=== PATIENT | male | born 1955 | race Caucasian/White ===

== ENCOUNTER 2022-04-18 13:31 | Inpatient (IN) | payer MEDICARE ==
[~2022-04-18] VITALS: Ht 167.6 cm; Wt 70.5 kg
[2022-04-18 14:02] LABS: LYMPHOCYTES # (AUTO) 0.8 X10'3 (1.1-4.8)
[2022-04-18 14:03] LABS: BASOPHILS % (AUTO) 0.2 % (0-1); EOSINOPHILS % (AUTO) 0.1 % (0-6); HEMATOCRIT 47.4 % (42.0-52.0); HEMOGLOBIN 15.9 g/dl (14.0-17.9); MEAN CORPUSCULAR HEMOGLOBIN 30.5 PG (27.0-31.0); MEAN CORPUSCULAR HGB CONC 33.7 g/dL (33.0-36.5); MEAN CORPUSCULAR VOLUME 90.5 FL (78-98); MONOCYTES # (AUTO) 1.6 X10'3 (0-0.9); MONOCYTES % (AUTO) 10.5 % (2-12); NEUTROPHILS # (AUTO) 13.1 X10'3 (1.8-7.7); NEUTROPHILS % (AUTO) 84.2 % (42-75); PLATELET COUNT 106 X10'3 (140-440); RED BLOOD COUNT 5.23 X10'6 (4.70-6.10); RED CELL DISTRIBUTION WIDTH 13.6 % (11.5-14.5); WHITE BLOOD COUNT 15.6 X10'3 (4.5-11.0)
[2022-04-18 14:43] LABS: ALANINE AMINOTRANSFERASE 21 U/L (12-78); ALBUMIN/GLOBULIN RATIO 0.6 (1.1-1.5); ALKALINE PHOSPHATASE 122 IU/L (46-116); ANION GAP 15 (8-16); ASPARTATE AMINO TRANSFERASE 23 U/L (10-37); BILIRUBIN,TOTAL 1.4 MG/DL (0.1-1.0); BLOOD UREA NITROGEN 72 MG/DL (7-18); BUN/CREATININE RATIO 29.9 (5.4-32.0); CALCIUM 9.1 MG/DL (8.5-10.1); CHLORIDE 94 MMOL/L (99-107); CREATININE 2.41 MG/DL (0.60-1.10); GLUCOSE 97 MG/DL (70-104); LIPASE 102 U/L (73-393); POTASSIUM 3.6 MMOL/L (3.5-5.1); SODIUM 131 MMOL/L (135-145); TOTAL CARBON DIOXIDE 21.8 MMOL/L (24-32); TOTAL PROTEIN 8.1 G/DL (6.4-8.2); eGFR 27 ML/MIN
[2022-04-18] MEDS ORDERED: normal saline 1000ml 1,000 ML IV ONE ×2 (19:00)
[2022-04-18] MEDS ORDERED: ondansetron/PF 4mg/2ml inj IV ONE ×2 (19:00→21:45)
[2022-04-18 19:37] LABS: CLARITY,URINE SLIGHTLY CLOUDY (Clear); COLOR,URINE YELLOW (Yellow); GLUCOSE, URINE NEGATIVE (Neg); KETONES,URINE TRACE mg/dl (Neg); LEUKOCYTE ESTERASE ,URINE SMALL (Neg); NITRITES, URINE NEGATIVE (Neg); OCCULT BLOOD,URINE MODERATE (Neg); PROTEIN,URINE TRACE mg/dl (Neg)
[2022-04-18 19:43] LABS: UA COLLECTION TYPE CLN CATCH MIDSTREAM
--- NOTE | 2022-04-18 19:44 | NUR ---
notified pt. that I need a sample to rule out c-diff. pt says he is currently unable to give sample at this moment.
[2022-04-18 19:53] LABS: BACTERIA,URINE FEW /HPF (Neg); RBC,URINE 0-2 /HPF (0-2); SQUAMOUS EPITHELIAL CELL,UR FEW /LPF (FEW); WBC,URINE 0-4 /HPF (0-4)
--- NOTE | 2022-04-18 20:31 | NUR ---
pts. indira will be Lionel
[2022-04-18] MEDS ORDERED: dextrose 5%-1/2 normal saline 1,000 ML IV ONE (21:15)
[2022-04-18] MEDS ORDERED: CefTRIAXone 2gm/NS 100ml IVPB 100 ML IV ONE (21:30)
[2022-04-18] MEDS ORDERED: vancomycin 125mg/5ml ORAL solution 5ml UD oral syringe PO SCH (21:35)
[2022-04-18] MEDS ORDERED: morphine 4 MG/ML inj SYRINge IV ONE (21:45)
[2022-04-18] MEDS ORDERED: mag hydrox/Alum hydrox/simeth 30ml oral suspension PO PRN (22:05)
[2022-04-18] MEDS ORDERED: loperamide 2mg capsule PO PRN (22:05)
[2022-04-18] MEDS ORDERED: magnesium 2GM in 50ml NS 50 ML IV PRN (22:05)
[2022-04-18] MEDS ORDERED: magnesium 4gm in 100ml NS 100 ML IV PRN (22:05)
[2022-04-18] MEDS ORDERED: magnesium hydroxide 30ml (MOM) UD suspension PO PRN (22:05)
[2022-04-18] MEDS ORDERED: POTASSIUM BICARB 20meq eff tab 20 MEQ TABLET.EFF PO PRN ×2 (22:05)
[2022-04-18] MEDS ORDERED: ondansetron/PF 4mg/2ml inj IV PRN (22:05)
[2022-04-18] MEDS ORDERED: acetaminophen 325mg tablet PO PRN ×2 (22:05)
[2022-04-18] MEDS ORDERED: magnesium Cl slow-release 64mg tablet PO PRN (22:05)
[2022-04-18] MEDS ORDERED: potassium CL 10mEq/100ml bag 100 ML IV PRN (22:05)
[2022-04-18] MEDS: dextrose 5%-1/2 normal saline 1,000 ML IV SCH (22:05)
[2022-04-18 22:55] LABS: MAGNESIUM 2.4 MG/DL (1.5-2.4)
[2022-04-18] MEDS ORDERED: diatrozoate meglu/diatrozoate sod (37% iodine) 120ML oral solution PO STA (23:16)
[2022-04-18 23:24] LABS: URINE AMPHETAMINE SCREEN NEGATIVE (Neg); URINE BARBITUATE SCREEN NEGATIVE (Neg); URINE BENZODIAZEPINES SCREEN NEGATIVE (Neg); URINE CANNABINOID SCREEN NEGATIVE (Neg); URINE COCAINE SCREEN NEGATIVE (Neg); URINE METHADONE SCREEN NEGATIVE (Neg); URINE OPIATE SCREEN NEGATIVE (Neg); URINE PHENCYCLIDINE SCREEN NEGATIVE (Neg)
[2022-04-18] MEDS ORDERED: diatr meglu/diatrizoate 30ml oral sol.-(3 dose) bottle PO STA (23:28)
--- NOTE | 2022-04-19 00:06 | NUR ---
MRI form done.
[2022-04-19] MEDS ORDERED: NO HOME MEDS (00:08)
[2022-04-19] MEDS: HYDROcodone/acetaminophen 5mg/325mg tablet PO PRN (00:45)
[2022-04-19 06:00] VITALS: BP 126/69
[2022-04-19 06:30] LABS: BASOPHILS % (AUTO) 0.2 % (0-1); EOSINOPHILS % (AUTO) 0.3 % (0-6); HEMATOCRIT 36.5 % (42.0-52.0); HEMOGLOBIN 12.3 g/dl (14.0-17.9); LYMPHOCYTES # (AUTO) 0.8 X10'3 (1.1-4.8); LYMPHOCYTES % (AUTO) 5.5 % (21-51); MEAN CORPUSCULAR HEMOGLOBIN 30.6 PG (27.0-31.0); MEAN CORPUSCULAR HGB CONC 33.7 g/dL (33.0-36.5); MEAN CORPUSCULAR VOLUME 90.9 FL (78-98); MEAN PLATELET VOLUME 9.6 FL (7.4-10.4); MONOCYTES % (AUTO) 13.7 % (2-12); NEUTROPHILS # (AUTO) 11.4 X10'3 (1.8-7.7); NEUTROPHILS % (AUTO) 80.3 % (42-75); PLATELET COUNT 92 X10'3 (140-440); RED BLOOD COUNT 4.02 X10'6 (4.70-6.10); RED CELL DISTRIBUTION WIDTH 13.9 % (11.5-14.5); WHITE BLOOD COUNT 14.3 X10'3 (4.5-11.0)
--- NOTE | 2022-04-19 06:30 | NUR ---
Patient in room [facility]TH[facility] 4007. I have received report from Rosaura DAMON and had the opportunity to ask questions and assume patient care.
[2022-04-19 06:42] LABS: ALANINE AMINOTRANSFERASE 15 U/L (12-78); ALBUMIN 2.1 G/DL (3.4-5.0); ALBUMIN/GLOBULIN RATIO 0.6 (1.1-1.5); ALKALINE PHOSPHATASE 91 IU/L (46-116); ANION GAP 9 (8-16); ASPARTATE AMINO TRANSFERASE 17 U/L (10-37); BILIRUBIN,TOTAL 0.7 MG/DL (0.1-1.0); BLOOD UREA NITROGEN 67 MG/DL (7-18); BUN/CREATININE RATIO 29.5 (5.4-32.0); CHLORIDE 103 MMOL/L (99-107); CREATININE 2.27 MG/DL (0.60-1.10); GLUCOSE 110 MG/DL (70-104); MAGNESIUM 2.3 MG/DL (1.5-2.4); POTASSIUM 3.5 MMOL/L (3.5-5.1); SODIUM 135 MMOL/L (135-145); TOTAL CARBON DIOXIDE 22.9 MMOL/L (24-32); TOTAL PROTEIN 5.9 G/DL (6.4-8.2); eGFR 29 ML/MIN
[2022-04-19] MEDS ORDERED: diatr meglu/diatrizoate 30ml oral sol.-(3 dose) bottle PO ONE ×2 (07:00→10:00)
[2022-04-19] MEDS: K and/or MAG REPLACEMENT MC SCH ×2 (08:00→19:15)
[2022-04-19] MEDS: docusate sod 100mg capsule PO SCH ×2 (08:00→19:15)
[2022-04-19] MEDS ORDERED: enoxaparin 40mg/0.4ml syringe SUBCUT SCH (08:00)
[2022-04-19] MEDS ORDERED: iohexol 300mg/ml 100ml inj. ONE (08:35)
--- NOTE | 2022-04-19 09:08 | NUR ---
Paged Dr. Smart about patient gram neg rods in blood culture Addendum: 04/19/22 at 1046 by Jo Ann Madison RN Dr. Smart notified of 2nd pos. blood cultures gram neg in left arm.
[2022-04-19 10:00] VITALS: BP 113/64
[2022-04-19] MEDS ORDERED: PERFLUTREN PROTEIN-A MICROSPHR (Optison) 0.22 MG/ML 3ML VIAL IV PRN (13:45)
[2022-04-19] MEDS: pantoprazole 40mg Tablet.DR PO SCH (13:49)
[2022-04-19] MEDS: dextrose 5%-1/2 normal saline 1,000 ML IV SCH ×2 (14:26→19:15)
[2022-04-19] MEDS ORDERED: cefTRIAXone 1g/NS 100ml IVPB 100 ML IV ONE (17:10)
[2022-04-19] MEDS ORDERED: SINCALIDE IV ONE (17:15)
[2022-04-19] MEDS ORDERED: NORMAL SALINE IV ONE (17:15)
[2022-04-19] MEDS ORDERED: piperacillin/tazobactam inj. 3.375 GM in NS 50ml IV ONE (17:35)
[2022-04-19 17:45] VITALS: BP_SYST 129; BP_SYST 136; BP_SYST 139; BP_DIAS 69; BP_DIAS 71; BP_DIAS 77
[2022-04-19 18:00] VITALS: BP 138/69
--- NOTE | 2022-04-19 18:23 | NUR ---
Problems reprioritized. Patient report given, questions answered & plan of care reviewed with Katheryn DAMON.
[2022-04-19 19:13] VITALS: BP 138/69
[2022-04-19 22:00] VITALS: BP 127/61
[2022-04-20] MEDS: dextrose 5%-1/2 normal saline 1,000 ML IV SCH ×2 (04:05→08:44)
[2022-04-20] MEDS: piperacillin/tazobactam inj. 3.375 GM in NS 50ml IV SCH ×2 (04:18→12:49)
[2022-04-20] MEDS: HYDROcodone/acetaminophen 5mg/325mg tablet PO PRN (04:42)
[2022-04-20 06:00] VITALS: BP 124/67
--- NOTE | 2022-04-20 06:05 | NUR ---
Report given to Lulú DAMON.
[2022-04-20 06:10] LABS: BASOPHILS # (AUTO) 0.1 X10'3 (0-0.2); BASOPHILS % (AUTO) 0.7 % (0-1); EOSINOPHILS % (AUTO) 0.2 % (0-6); HEMATOCRIT 33.7 % (42.0-52.0); HEMOGLOBIN 11.5 g/dl (14.0-17.9); LYMPHOCYTES # (AUTO) 0.9 X10'3 (1.1-4.8); LYMPHOCYTES % (AUTO) 5.9 % (21-51); MEAN CORPUSCULAR HEMOGLOBIN 30.1 PG (27.0-31.0); MEAN CORPUSCULAR VOLUME 88.8 FL (78-98); MEAN PLATELET VOLUME 9.5 FL (7.4-10.4); MONOCYTES # (AUTO) 1.6 X10'3 (0-0.9); NEUTROPHILS # (AUTO) 12.2 X10'3 (1.8-7.7); NEUTROPHILS % (AUTO) 82.2 % (42-75); PLATELET COUNT 131 X10'3 (140-440); RED CELL DISTRIBUTION WIDTH 13.9 % (11.5-14.5); WHITE BLOOD COUNT 14.9 X10'3 (4.5-11.0)
--- NOTE | 2022-04-20 06:24 | NUR ---
Patient in room ORTH[facility] 4007. I have received report from manolo soto and had the opportunity to ask questions and assume patient care.
[2022-04-20 06:29] LABS: ALANINE AMINOTRANSFERASE 21 U/L (12-78); ALBUMIN 2.1 G/DL (3.4-5.0); ALBUMIN/GLOBULIN RATIO 0.5 (1.1-1.5); ALKALINE PHOSPHATASE 105 IU/L (46-116); AMYLASE 61 U/L (25-115); ANION GAP 11 (8-16); ASPARTATE AMINO TRANSFERASE 26 U/L (10-37); BILIRUBIN,TOTAL 1.1 MG/DL (0.1-1.0); BLOOD UREA NITROGEN 40 MG/DL (7-18); BUN/CREATININE RATIO 22.3 (5.4-32.0); CALCIUM 8.6 MG/DL (8.5-10.1); CHLORIDE 106 MMOL/L (99-107); CREATININE 1.79 MG/DL (0.60-1.10); GLUCOSE 107 MG/DL (70-104); LIPASE 104 U/L (73-393); MAGNESIUM 2.1 MG/DL (1.5-2.4); PHOSPHORUS 3.1 MG/DL (2.3-4.5); POTASSIUM 3.5 MMOL/L (3.5-5.1); SODIUM 137 MMOL/L (135-145); TOTAL CARBON DIOXIDE 20.5 MMOL/L (24-32); eGFR 38 ML/MIN
[2022-04-20] MEDS ORDERED: cefTRIAXone 1g/NS 100ml IVPB 100 ML IV SCH (08:00)
[2022-04-20] MEDS: K and/or MAG REPLACEMENT MC SCH ×2 (08:00→20:00)
[2022-04-20] MEDS: enoxaparin 30mg/0.3ml syringe SUBCUT SCH (08:25)
[2022-04-20] MEDS: pantoprazole 40mg Tablet.DR PO SCH (08:25)
[2022-04-20] MEDS: docusate sod 100mg capsule PO SCH (08:26)
[2022-04-20] MEDS: multivitamins, therapeutics tablet PO SCH (08:26)
[2022-04-20] MEDS: LORazepam 0.5 MG tablet PO SCH (08:33)
[2022-04-20] MEDS: HYDROcodone/acetaminophen 10/325mg tab PO PRN ×2 (08:47→23:12)
[2022-04-20 10:00] VITALS: BP_SYST 113; BP_DIAS 61; BP_DIAS 64
[2022-04-20 10:10] LABS: C DIFF SPECIMEN=DIARRHEA? ACCEPTABLE; C DIFFICILE TOXINS A&B NEGATIVE (Neg)
[2022-04-20] MEDS ORDERED: SINCALIDE IV ONE (11:00)
[2022-04-20] MEDS ORDERED: NORMAL SALINE IV ONE (11:00)
[2022-04-20 11:14] LABS: OCCULT BLOOD STOOL NEGATIVE (Neg)
[2022-04-20] MEDS ORDERED: LORazepam 0.5 MG tablet PO PRN (14:25)
[2022-04-20] MEDS: normal saline 1000ml 1,000 ML IV SCH (14:55)
--- NOTE | 2022-04-20 15:46 | NUR ---
pt was extremely anxious this am. ordered ativan and patient was very pleased with medication. Pt c-diff results were negative. MRI and Hida scan done today. Pt on cc diet and has good appetite. Patient is adlib to bathroom. Will continue to monitor patient
[2022-04-20 18:00] VITALS: BP 139/74
--- NOTE | 2022-04-20 18:39 | NUR ---
Patient in room ORTH[facility] 4007. I have received report from Lulú DAMON and had the opportunity to ask questions and assume patient care.
[2022-04-20 22:00] VITALS: BP_SYST 127; BP_SYST 137; BP_SYST 146; BP_DIAS 74; BP_DIAS 78; BP_DIAS 79
[2022-04-21] MEDS: normal saline 1000ml 1,000 ML IV SCH ×2 (01:07→10:30)
[2022-04-21 06:00] VITALS: BP 135/48
[2022-04-21 06:54] LABS: BASOPHILS % (AUTO) 0.2 % (0-1); EOSINOPHILS % (AUTO) 0.3 % (0-6); HEMATOCRIT 31.1 % (42.0-52.0); HEMOGLOBIN 10.5 g/dl (14.0-17.9); LYMPHOCYTES # (AUTO) 1.6 X10'3 (1.1-4.8); LYMPHOCYTES % (AUTO) 12.7 % (21-51); MEAN CORPUSCULAR HEMOGLOBIN 30.2 PG (27.0-31.0); MEAN CORPUSCULAR HGB CONC 33.7 g/dL (33.0-36.5); MEAN CORPUSCULAR VOLUME 89.8 FL (78-98); MEAN PLATELET VOLUME 9.6 FL (7.4-10.4); MONOCYTES # (AUTO) 1.3 X10'3 (0-0.9); NEUTROPHILS # (AUTO) 9.8 X10'3 (1.8-7.7); NEUTROPHILS % (AUTO) 76.8 % (42-75); PLATELET COUNT 199 X10'3 (140-440); RED BLOOD COUNT 3.46 X10'6 (4.70-6.10); RED CELL DISTRIBUTION WIDTH 13.9 % (11.5-14.5); WHITE BLOOD COUNT 12.8 X10'3 (4.5-11.0)
[2022-04-21] MEDS: HYDROcodone/acetaminophen 10/325mg tab PO PRN (07:34)
[2022-04-21] MEDS: pantoprazole 40mg Tablet.DR PO SCH (07:34)
[2022-04-21] MEDS: multivitamins, therapeutics tablet PO SCH (07:34)
[2022-04-21] MEDS: enoxaparin 30mg/0.3ml syringe SUBCUT SCH (07:35)
[2022-04-21 07:45] LABS: ALANINE AMINOTRANSFERASE 19 U/L (12-78); ALBUMIN 2.1 G/DL (3.4-5.0); ALBUMIN/GLOBULIN RATIO 0.6 (1.1-1.5); ALKALINE PHOSPHATASE 96 IU/L (46-116); AMYLASE 59 U/L (25-115); ANION GAP 9 (8-16); ASPARTATE AMINO TRANSFERASE 23 U/L (10-37); BILIRUBIN,TOTAL 0.6 MG/DL (0.1-1.0); BLOOD UREA NITROGEN 30 MG/DL (7-18); BUN/CREATININE RATIO 20.4 (5.4-32.0); CALCIUM 8.1 MG/DL (8.5-10.1); CHLORIDE 105 MMOL/L (99-107); CREATININE 1.47 MG/DL (0.60-1.10); GLUCOSE 80 MG/DL (70-104); LIPASE 86 U/L (73-393); MAGNESIUM 1.7 MG/DL (1.5-2.4); PHOSPHORUS 3.4 MG/DL (2.3-4.5); POTASSIUM 3.4 MMOL/L (3.5-5.1); SODIUM 136 MMOL/L (135-145); TOTAL CARBON DIOXIDE 22.4 MMOL/L (24-32); TOTAL PROTEIN 5.7 G/DL (6.4-8.2); eGFR 48 ML/MIN
[2022-04-21] MEDS: LORazepam 0.5 MG tablet PO SCH (07:46)
--- NOTE | 2022-04-21 07:52 | NUR ---
Page Sent PAGER ID: [phone] MESSAGE: [id number] faizan pt blood sugar was 68 this am, but I don't see any history of why we are checking blood sugars. would like to talk to you about this. please call me. juan j [phone]
--- NOTE | 2022-04-21 07:52 | NUR ---
Patient in room ORTH[facility] 4007. I have received report from luzma sandoval and had the opportunity to ask questions and assume patient care.
--- NOTE | 2022-04-21 07:57 | NUR ---
per dr medina wants to stop blood sugar tests and just let the pt eat and no need to replace bs per protocol. pt has no etoh or dm history.
[2022-04-21] MEDS: K and/or MAG REPLACEMENT MC SCH (08:00)
[2022-04-21] MEDS ORDERED: levoFLOXACIN-Levaquin 500mg/D5 100 ML IV SCH (08:00)
[2022-04-21 10:00] VITALS: BP 125/65
--- NOTE | 2022-04-21 14:34 | NUR ---
Page Sent PAGER ID: [phone] MESSAGE: [phone] faizan pt does not want surgery, dr petty knows and says he can be discharge. can you do that please, thanks! juan j [phone]
[2022-04-21] MEDS ORDERED: CIPR-259 PO (14:45)
[2022-04-21] MEDS ORDERED: METR-159 PO (14:45)
--- NOTE | 2022-04-21 15:08 | NUR ---
per dr petty, pt can be discharged by dr medina. he wants a second opinion and wants all his med records which i will have him sign and put in his chart.
--- NOTE | 2022-04-21 17:00 | NUR ---
pt was stable for discharge, iv cannula is intact, pt had all belongings, discharge info went over and signed. he signed a medical release to have everything sent to him for his follow up with a second opinion. i told pt to wait to make sure meds went through to pharmacy but he couldn't wait so i will make sure they sent to [facility] in [place] for him. he was wheel down in a wheelchair and left in a private vehicle with friend.
[2022-04-22] MEDS ORDERED: levoFLOXACIN-Levaquin 250mg/D5 50 ML IV SCH (08:00)
[2022-04-24] MEDS ORDERED: thiamine 100mg tablet PO SCH (08:00)
== END 2022-04-21 17:20 | disposition home or self-care (01) | DRG 871 ==
LOC: ER 13:33 → ED HOLD 22:17 → EDBEDREQ 04-19 00:30 → ORTHO 4S 04-19 01:09
PROVIDERS: ADMIT Internal Medicine; ATTEND Family Medicine
PROC: BW211ZZ Computerized Tomography (CT Scan) of Abdomen and Pelvis using Low Osmolar Contrast (ICD-10-PCS; 2022-04-19)
PROC: CF1C1ZZ Planar Nuclear Medicine Imaging of Hepatobiliary System, All using Technetium 99m (Tc-99m) (ICD-10-PCS; principal; 2022-04-20)
DX: A41.9 Sepsis, unspecified organism (principal); G93.41 Metabolic encephalopathy; N39.0 Urinary tract infection, site not specified; E87.1 Hypo-osmolality and hyponatremia; N17.9 Acute kidney failure, unspecified; M48.061 Spinal stenosis, lumbar region without neurogenic claudication; A05.9 Bacterial foodborne intoxication, unspecified; Z20.822 Contact with and (suspected) exposure to COVID-19; M54.9 Dorsalgia, unspecified; B96.20 Unspecified Escherichia coli [E. coli] as the cause of diseases classified elsewhere; D69.6 Thrombocytopenia, unspecified; F03.90 Unspecified dementia, unspecified severity, without behavioral disturbance, psychotic disturbance, mood disturbance, and anxiety; G89.29 Other chronic pain; K80.20 Calculus of gallbladder without cholecystitis without obstruction
CPT/HCPCS: 36415; 70250; 70450; 70551; 71045; 72148; 74176; 76700; 80053; 80305; 81001; 82140; 82150; 82272; 82948; 83605; 83690; 83735; 84100; 84145; 85025; 85610; 87040; 87045; 87046; 87077; 87081; 87088; 87186; 87324; 87449; 87635; 89055; 93306; 96361; 96365; 99285; G0378; J0696; J1650; J1956; J2270; J2405; J2543; J3490; J7030; J7042; Q9963; Q9967

== ENCOUNTER → 2022-05-25 | Day surgery (SDC) | payer MEDICARE ==
[2022-05-19 11:28] LABS: BASOPHILS % (AUTO) 0.3 % (0-1); EOSINOPHILS # (AUTO) 0.1 X10'3 (0-0.9); EOSINOPHILS % (AUTO) 0.8 % (0-6); LYMPHOCYTES # (AUTO) 1.8 X10'3 (1.1-4.8); LYMPHOCYTES % (AUTO) 15.9 % (21-51); MEAN CORPUSCULAR HEMOGLOBIN 29.5 PG (27.0-31.0); MEAN CORPUSCULAR HGB CONC 33.3 g/dL (33.0-36.5); MEAN CORPUSCULAR VOLUME 88.6 FL (78-98); MEAN PLATELET VOLUME 7.8 FL (7.4-10.4); MONOCYTES # (AUTO) 0.7 X10'3 (0-0.9); MONOCYTES % (AUTO) 6.5 % (2-12); NEUTROPHILS # (AUTO) 8.5 X10'3 (1.8-7.7); NEUTROPHILS % (AUTO) 76.5 % (42-75); PRE OP HEMATOCRIT 30.8 % (42.0-52.0); PRE OP PLATELET COUNT 533 X10'3 (140-440); RED BLOOD COUNT 3.48 X10'6 (4.70-6.10); RED CELL DISTRIBUTION WIDTH 12.8 % (11.5-14.5)
[2022-05-19 11:30] LABS: PRE OP HEMOGLOBIN 10.3 g/dL (14.0-17.9)
[2022-05-19 11:32] LABS: CLARITY,URINE CLEAR (Clear); COLOR,URINE YELLOW (Yellow); GLUCOSE, URINE NEGATIVE (Neg); KETONES,URINE NEGATIVE (Neg); LEUKOCYTE ESTERASE ,URINE NEGATIVE (Neg); NITRITES, URINE NEGATIVE (Neg); OCCULT BLOOD,URINE NEGATIVE (Neg); PROTEIN,URINE NEGATIVE (Neg); UROBILINOGEN,URINE 0.2 E.U/dL (0.2-1.0)
[2022-05-19 11:34] LABS: UA COLLECTION TYPE CLN CATCH MIDSTREAM
[2022-05-19 11:45] LABS: ALBUMIN 2.9 G/DL (3.4-5.0); ALBUMIN/GLOBULIN RATIO 0.6 (1.1-1.5); ALKALINE PHOSPHATASE 66 IU/L (46-116); BLOOD UREA NITROGEN 18 MG/DL (7-18); BUN/CREATININE RATIO 12.6 (5.4-32.0); CALCIUM 9.2 MG/DL (8.5-10.1); CHLORIDE 107 MMOL/L (99-107); CREATININE 1.43 MG/DL (0.60-1.10); PRE OP ALT 17 U/L (30-65); PRE OP ANION GAP 12 (8-16); PRE OP AST 9 U/L (10-37); PRE OP BILIRUB, TOTAL 0.2 MG/DL (0.0-1.0); PRE OP GLUCOSE 90 MG/DL (70-104); PRE OP POTASSIUM 3.7 MMOL/L (3.4-5.1); PRE OP SODIUM 142 MMOL/L (135-145); TOTAL CARBON DIOXIDE 23.3 MMOL/L (24-32); TOTAL PROTEIN 8.1 G/DL (6.4-8.2); eGFR 49 ML/MIN
[~2022-05-25] VITALS: Ht 165.1 cm; Wt 63.0 kg
[2022-05-25] VITALS (8 sets, daily range): BP systolic 122–145; BP diastolic 66–75
[~2022-05-25] MED LIST: BUPIVAcaine/PF 2.5 mg/ml (0.25%) 30ml vial ONE; HYDROcodone/acetaminophen 10/325mg tab PO ONE; NO HOME MEDS; ceFOXitin 2GM-NS 100mL ADDvant 100 ML IV ONE; dexamethasone sod phosphate 4mg/ml inj. ONE; famotidine 20mg tablet PO ONE; fentaNYL/PF 50MCG/1 ML 2ML syringe ONE; glycopyrrolate 0.2mg/ml inj ONE; meperidine/PF 25mg/ml syringe IV PRN; morphine 2 MG/ML inj. syringe IV PRN; morphine 4 MG/ML inj SYRINge IV PRN; neostigmine methylsulfate 1 MG/ML 10ml vial ONE; ondansetron/PF 4mg/2ml inj IV PRN; ondansetron/PF 4mg/2ml inj ONE; proCHLORperazine 10 MG/2 ml inj IV PRN; propofol inj 20 ML IV ONE; ringers solution, lacted 1,000 ML IV SCH; rocuronium 10mg/ml inj IV ONE; sevoflurane 250ml liquid IH ONE
--- NOTE | 2022-05-25 15:31 | NUR ---
Received from OR via [facility] , accompanied by Anesthesiologist BARTOLO and report given by Anesthesiolgist. PATIENTT WITH 20G PIV IN RIGHT UE RUNNING LR AT 100. PATIENT WITH 4 LAP SITES TO THE ABDOMEN THAT ARE ALL CDI CURRENTLY. VSS. DENIES PAIN. Addendum: 05/25/22 at 1541 by Lv Marquez RN, RN Amended: Links added.
--- NOTE | 2022-05-25 16:41 | NUR ---
ALL DC INSTRUCTIONS HAVE BEEN MET. VSS. MEDICATED FOR PAIN PRIOR TO DC HOME. ALL INSTRUCTIONS COVERED WITH PATIENT WELL LYNNETTE GLEASON WHO WAS THE RIDE HOME. PATIENT GIVEN INSTRUCTIONS WITH TIME OF NEXT DOSE OF NORCO. FRIEND LYNNETTE AWARE ON WHEN PATIENT IS DUE FOR NEXT PAIN MED. PATIENT HAS SUPPORT IN [place] [facility] [phone] TAKEN TO PHARMACY THEN HOME. Addendum: 05/25/22 at 1708 by Lv Marquez RN, RN Amended: Links added.
== END | disposition home or self-care (01) ==
LOC: PAS 09:05
PROVIDERS: ATTEND Surgery
DX: K80.10 Calculus of gallbladder with chronic cholecystitis without obstruction (principal); Z79.899 Other long term (current) drug therapy; K82.8 Other specified diseases of gallbladder; Z87.891 Personal history of nicotine dependence; Z72.89 Other problems related to lifestyle; Z98.890 Other specified postprocedural states
CPT/HCPCS: 36415; 47562; 80053; 81003; 82948; 85025; 87811; 93005; J0694; J1100; J2405; J2704; J2710; J3010; J3490; J7030; J7120; Z7506; Z7508; Z7512; 88304; A4215; A4618; A7000